=== PATIENT | female | born 2000 | race Caucasian/White ===

== ENCOUNTER 2023-04-17 01:39 | Outpatient (CLI) | payer BC, MEDICAID ==
[~2023-04-17] VITALS: Ht 147.3 cm; Wt 60.5 kg
--- NOTE | 2023-04-17 01:40 | NUR ---
Ambulatory to unit for assessment, accompanied by family. Pt reports 'the Dr did a cervical check at the office. He said I would have some cramping but these feel stronger" oriented to room, monitor, plan of care. Questions invited and answered. SVE as noted, unchanged from reported office exam.
[2023-04-17 02:00] VITALS: BP 124/79; PULSE 103
[2023-04-17] MEDS ORDERED: LR 1,000 ML IV PRN (02:15)
[2023-04-17] MEDS ORDERED: PRENATAL TABLET PO (02:17)
[2023-04-17 03:00] VITALS: BP 113/70; PULSE 87; TEMP 98
[2023-04-17 03:35] VITALS: BP 115/69; PULSE 88
--- NOTE | 2023-04-17 03:35 | NUR ---
Repeat SVE with no changes noted.
--- NOTE | 2023-04-17 03:55 | NUR ---
Discharge instructions reviewed with pt and family. Education printouts given. Questions invited and answered. 0400 Ambulatory off unit with family.
== END 2023-04-17 04:04 | disposition home or self-care (01) ==
LOC: LDRO 01:39 → LDR 01:45 → LDRO 04:04
DX: Z34.93 Encounter for supervision of normal pregnancy, unspecified, third trimester (principal); Z3A.39 39 weeks gestation of pregnancy
CPT/HCPCS: OP

== ENCOUNTER 2023-04-18 07:56 | Inpatient (IN) | payer BC, MEDICAID ==
[2023-04-18] VITALS (29 sets, daily range): BP systolic 58–133; BP diastolic 54–79; PULSE 83–115; TEMP 98.2–99
[~2023-04-18] VITALS: Ht 147.3 cm; Wt 60.5 kg
[~2023-04-18 07:56] MED LIST: PRENATAL TABLET PO
--- NOTE | 2023-04-18 08:05 | NUR ---
Pt arrived on unit ambulatory and with concerns for contractions for the last couple days and worsening this morning. Pt denies any leaking of fluid or vaginal bleeding and reports normal movement. EFM and toco monitors started. Vital signs WNL. SVE by this RN 5-6//-[address] with bul[address] bag [address] Dr[address] Zaragoza notified.
--- NOTE | 2023-04-18 08:51 | NUR ---
Pt off EFM to ambulate and use birthing ball for comfort.
[2023-04-18 09:11] LABS: BASO # 0.1 K/mm3 (0.0-0.2); BASO % 0.4 % (0.0-2.0); EOS # 0.3 K/mm3 (0.0-0.7); EOS % 1.5 % (0.0-4.0); GRAN # 16.3 K/mm3 (1.4-6.5); GRAN % 81.9 % (42.2-75.2); HEMOGLOBIN 12.5 g/dl (12.5-16.0); LYMPH # 2.1 K/mm3 (1.2-3.4); LYMPH % 10.7 % (20.0-51.0); MEAN CELL VOLUME 92 fl (80.0-100.0); MEAN CORPUSCULAR HEMOGLOBIN 32 pg (27-31); MEAN CORPUSCULAR HGB CONC 34 g/dl (33.0-37.0); MEAN PLATELET VOLUME 9.9 fl (7.4-10.4); MONO % 5.1 % (1.7-9.3); PLATELET COUNT 224 K/mm3 (130-400); RED BLOOD COUNT 3.97 M/mm3 (4.10-5.30)
[2023-04-18 09:12] LABS: HEMATOCRIT 36.5 % (37.0-47.0)
--- NOTE | 2023-04-18 09:15 | NUR ---
THIS RN ASSUMED CARE OF THIS PT AT THIS TIME. THIS RN RECEIVED REPORT FROM JONATHAN MCLAUHGLIN
--- NOTE | 2023-04-18 09:52 | NUR ---
TOCO AND EFM PLUGGED BACK IN BY THIS RN. EFM TRACING CAT I.
--- NOTE | 2023-04-18 10:44 | NUR ---
1031DUANE SUPERVISOR LOCOMOTIVE NOTIFIED OF PT REQUEST FOR EPIDURAL. 1038DUANE ON UNIT. PT UP TO SITTING ON SIDE OF BED. PULSE OX IN PLACE. PT VITAL SIGNS STABLE. EFM TRACING CAT I. 1040DUANE SUPERVISOR LOCOMOTIVE AT BEDSIDE. DISCUSSES POC WITH PT. PT VERBALIZES AGREEMENT. EFM TRACING MATERNAL HR. 1044SINGLE SHOT ADMINISTERED AT THIS TIME PER T[place] SUPERVISOR LOCOMOTIVE. PT VITAL SIGNS STABLE. EFM TRACING CAT I. PT TOLERATED PROCEDURE WELL. 1046PT RETURNED TO BED. POSITIONED WEDGE LEFT. PT COMFORTABLE. PT VITAL SIGNS STABLE. EFM TRACING CAT I.
--- NOTE | 2023-04-18 11:17 | NUR ---
1115DR MENDOSA AT BEDSIDE. DISCUSSES POC WITH PT. PT VERBALIZES UNDERSTANDING. 1117SVE AT THIS TIME PER DR MENDOSA. 9/100/0. AROM AT THIS TIME. MODERATE AMOUNT OF CLEAR FLUID NOTED. PT TOLERATED WELL. PT VITAL SIGNS STABLE. EFM TRACING CAT I.
--- NOTE | 2023-04-18 11:55 | NUR ---
SVE BY THIS RN WITH A SECOND CHECK BY JONATHAN MCLAUGHLIN.
--- NOTE | 2023-04-18 12:30 | NUR ---
STRAIGHT CATH AT THIS TIME BY THIS RN. SVE AT THIS TIME. 9/100/+1. PT TOLERATED WELL. EFM TRACING CAT I. PT VITAL SIGNS STABLE.
--- NOTE | 2023-04-18 13:10 | NUR ---
SVE AT THIS TIME BY THIS RN. 9-10/100/+1. PT TOLERATED WELL.
--- NOTE | 2023-04-18 15:35 | NUR ---
1352SVE AT THIS TIME BY THIS RN WITH SECOND CHECK BY JONATHAN MCLAUGHLIN. /+2. DR MENDOSA NOTIFIED. NURSERY NURSE NOTIFIED. 1355 ROOM AND SUPPLIES SET UP FOR DELIVERY. 1405THIS RN BEGAN PUSHING WITH PT AT THIS TIME. DR MENDOSA AT BEDSIDE. GOOD MATERNAL EFFORT. EFM TRACING CAT I. PT VITAL SIGNS STABLE. 1405-1535PT PUSHING WITH THIS RN. 1525DR MENDOSA AT BEDSIDE FOR IMPENDING DELIVERY. NURSERY NURSE NOTIFIED. ROOM AND PT SET UP FOR DELIVERY. 1530PT REPOSITIONED TO ASSIST WITH DELIVERY. 1533VACUUM PLACED AT THIS TIME PER DR MENDOSA. SUCTION APPLIED AND TRACTION USED WHILE PUSHING WITH CTX PER DR MENDOSA. 1535VAVD OF VIABLE MALE INFANT PER DR MENDOSA. PLACED ON MATERNAL ABDOMEN. CARE ASSUMED BY NURSERY NURSE. 1538SVD OF PLACENTA PER DR MENDOSA. PITOCIN BOLUS STARTED. PT VITAL SIGNS STABLE. FUNDUS FIRM AT U. LOCHIA WNL. STRAIGHT CATH PER DR MENDOSA. 2ND DEGREE TEAR NOTED PER DR MENDOSA. REPAIR STARTED AT THIS TIME. 1542REPAIR FINISHED AT THIS TIME PER DR MENDOSA. FUNDUS FIRM AT U. LOCHIA WNL PT VITAL SIGNS STABLE.
--- NOTE | 2023-04-18 19:15 | NUR ---
191- PT ABLE TO LIFT BOTH LEGS OFF BED FOR >5 SEC. EPIDURAL CATHETER REMOVED WITHOUT DIFFICULTY. PT ASSISTED TO WALK TO BATHROOM. SHE IS ABLE TO VOID 500ML WITHOUT DIFFICULTY. PERICARE AND NORMAL LOCHIA DISCUSSED. CLEAN PAD, PANTIES PROVIDED. PT CHANGES INTO HER OWN CLOTHES. 1929- PT AMBULATES TO ROOM 208 WITHOUT DIFFICULTY. BELONGINGS AND BABY WITH PT. PT ACCOMPANIED BY BOYFRIEND. PLAN OF CARE DISCUSSED AND QUESTIONS ANSWERED. CALL LIGHTS WITHIN REACH. PT DENIES FURTHER NEEDS AT THIS TIME.
[2023-04-19 03:55] VITALS: BP 112/60; PULSE 96; TEMP 97.8
[2023-04-19 07:30] VITALS: BP 116/60; PULSE 95; TEMP 97.9
[2023-04-19] MEDS ORDERED: MOTRIN 800800 MG/TAB PO (08:38)
--- NOTE | 2023-04-19 10:48 | NUR ---
Initial visit attempt: Hearing Screening taking place. Cash Application Clerk left card offering congratulations and God's blessings for the of their son and information regarding the availability of Spiritual Care at our hospital.
[2023-04-19 20:50] VITALS: BP 108/66; PULSE 90; TEMP 98
[2023-04-20 08:18] VITALS: BP 110/76; PULSE 100
== END 2023-04-20 14:50 | disposition home or self-care (01) | DRG 807 ==
LOC: LDR 07:56 → LDRO 07:56 → LDR 07:57 → LDRO 08:27 → OB 08:28 → LDR 08:28 → OB 19:30
PROVIDERS: ADMIT Obstetrics & Gynecology
PROC: 10D07Z6 Extraction of Products of Conception, Vacuum, Via Natural or Artificial Opening (ICD-10-PCS; principal; 2023-04-18)
PROC: 0KQM0ZZ Repair Perineum Muscle, Open Approach (ICD-10-PCS; 2023-04-18)
DX: O76 Abnormality in fetal heart rate and rhythm complicating labor and delivery (principal); Z37.0 Single live birth; Z3A.39 39 weeks gestation of pregnancy; O70.1 Second degree perineal laceration during delivery; O36.5930 Maternal care for other known or suspected poor fetal growth, third trimester, not applicable or unspecified; Z23 Encounter for immunization
CPT/HCPCS: J2590; J2795; J7120